=== PATIENT | female | born 1960 | race Caucasian/White ===

== ENCOUNTER 2020-02-15 08:27 | Emergency (ER) | payer SELFPAY ==
[~2020-02-15] VITALS: Ht 167.6 cm; Wt 88.1 kg
--- NOTE | 2020-02-15 09:48 | PHYS DOC ---
Past Medical History Past Medical History: No Pertinent History Smoking Status: Former Smoker Alcohol Use: Occasionally General Adult EDM: Chief Complaint: UPPER EXTREMITY PAIN HPI: HPI: 59 yo F PMH migraine headaches presents to the ed after accidental fall on concrete (states she missed her step) landed on her right upper extremity (dominant right hand). C/o elbow pain. Reports no head injury or LOC. Takes no AC. Does take cbd oil for pain. Tetanus is UTD. No prior injury to RUE. Reports no dizziness or light headedness. Review of Systems: Review of Systems: Constitutional: Denies fever or chills. [] Eyes: Denies change in visual acuity. [] HENT: Denies nasal congestion or sore throat. [] Respiratory: Denies cough or shortness of breath. [] Cardiovascular: Denies chest pain or edema. [] GI: Denies abdominal pain, nausea, vomiting, bloody stools or diarrhea. [] : Denies dysuria. [] Musculoskeletal: Denies back pain or joint pain. [] Integument: Denies rash. [] Neurologic: Denies headache, focal weakness or sensory changes. [] Endocrine: Denies polyuria or polydipsia. [] Lymphatic: Denies swollen glands. [] Psychiatric: Denies depression or anxiety. [] Heart Score: Risk Factors: Risk Factors: DM, Current or recent (<one month) smoker, HTN, HLP, family history of CAD, obesity. Risk Scores: Score 0 - 3: 2.5% MACE over next 6 weeks - Discharge Home Score 4 - 6: 20.3% MACE over next 6 weeks - Admit for Clinical Observation Score 7 - 10: 72.7% MACE over next 6 weeks - Early Invasive Strategies Allergies: Allergies: Allergies Coded Allergies Type Severity Reaction Last Updated Verified No Known Drug Allergies 02/15/20 No Physical Exam: PE: Constitutional: Well developed, well nourished, no acute distress, non-toxic appearance. [] HENT: Normocephalic, atraumatic, bilateral external ears normal, oropharynx moist, no oral exudates, nose normal. [] Eyes: PERRLA, EOMI, conjunctiva normal, no discharge. [] Neck: Normal range of motion, no tenderness, supple, no stridor. [] Cardiovascular:Heart rate regular rhythm, no murmur [] Lungs & Thorax: Bilateral breath sounds clear to auscultation [] Abdomen: Bowel sounds normal, soft, no tenderness, no masses, no pulsatile masses. [] Skin: Warm, dry, no erythema, no rash. [] Back: No tenderness, no CVA tenderness. [] Extremities: No tenderness, no cyanosis, no clubbing, ROM intact, no edema, ttp over radial head, no elbow/wrist hand bone ttp, no tenderness over the rest of the forearm/wrist, abrasions over both knees-no knee ttp, abrasion over right elbow Neurologic: Alert and oriented X 3, normal motor function, normal sensory function, no focal deficits noted. [] Psychologic: Affect normal, judgement normal, mood normal. [] Current Patient Data: Vital Signs: Vital Signs Date Time Temp Pulse Resp B/P (MAP) Pulse Ox O2 Delivery O2 Flow Rate FiO2 02/15/20 09:07 98.0 16 163/72 (102) 96 Room Air 98.0 EKG: EKG: [] Radiology/Procedures: Radiology/Procedures: MAGING REPORT Signed PATIENT: LORENZO VANN ACCOUNT: [id number] : 1960 LOCATION: ER AGE: 59 SEX: F EXAM STATUS: REG ER ORD. PHYSICIAN: MIRANDA MCMULLEN DO REASON: fall - pain in proximal forearm when supinating/pronating hand PROCEDURE: ELBOW RIGHT 2V WRIST 2V LEFT, FOREARM RIGHT, ELBOW RIGHT 2V, HAND RIGHT 2V History: Pain. Reason: fall / Spl. Instructions: / History: Technique: 2 views right elbow, 2 views right forearm, 2 views right wrist and 2 views right hand. Comparison: None. Findings: Right elbow and forearm: Large right elbow joint effusion. Acute nondisplaced radial head fracture. Posterior elbow soft tissue swelling. Otherwise, normal alignment. Right wrist and hand: Mild distal radial ulnar degenerative changes. Normal alignment of the wrist and hand. Mild first carpometacarpal triscaphe DJD. Mild distal interphalangeal degenerative changes. No fracture. Impression: 1. Acute nondisplaced radial head fracture. 2. Large elbow joint effusion. 3. Mild wrist and hand DJD. Electronically signed by: Gustavo Mendez DO (02/15/2020 10:17 AM) [id number] DICTATED and SIGNED BY: GUSTAVO MENDEZ DO DATE: 02/15/20 1017 Impression: Concern for FOOSH injury with nondisplaced closed right radial head fracture, no posterior sail sign on xray. Has no humeral ttp. Patient was splinted with a sugar tong to right upper extremity and given a shoulder sling. Strict return precautions were given for compartment syndrome or neurologic deficits. Outpatient orthopedic follow-up will be given. Encourage PMD follow-up. Narcotic information given. All of her questions were answered and she was stable at time of discharge. Course & Med Decision Making: Course & Med Decision Making Pertinent Labs and Imaging studies reviewed. (See chart for details) [] Dragon Disclaimer: Dragon Disclaimer: This electronic medical record was generated, in whole or in part, using a voice recognition dictation system. Departure Departure Impression: Primary Impression: Radial head fracture, closed Additional Impression: Fall Disposition: 01 HOME, SELF-CARE Referrals: NO PCP (PCP) DIAMOND STONE MD Patient Instructions: Radial Head Fracture Scripts Hydrocodone/Apap 5-325 (NORCO 5-325 TABLET) 1 Each Tablet 1 TAB PO PRN Q6HRS PRN for PAIN, #10 TAB 0 Refills Prov: MIRANDA MCMULLEN DO 02/15/20 Justicifation of Admission Dx: Justifications for Admission: Justification of Admission Dx: N/A MIRANDA MCMULLEN DO Feb 15, 2020 09:48
[2020-02-15] MEDS ORDERED: NEOMY/BACITR/POLYMYXIN OINT PACKET. TP ONE (10:00)
--- NOTE | 2020-02-15 10:21 | RAD ---
WRIST 2V LEFT, FOREARM RIGHT, ELBOW RIGHT 2V, HAND RIGHT 2V History: Pain. Reason: fall / Spl. Instructions: / History: Technique: 2 views right elbow, 2 views right forearm, 2 views right wrist and 2 views right hand. Comparison: None. Findings: Right elbow and forearm: Large right elbow joint effusion. Acute nondisplaced radial head fracture. Posterior elbow soft tissue swelling. Otherwise, normal alignment. Right wrist and hand: Mild distal radial ulnar degenerative changes. Normal alignment of the wrist and hand. Mild first carpometacarpal triscaphe DJD. Mild distal interphalangeal degenerative changes. No fracture. Impression: 1. Acute nondisplaced radial head fracture. 2. Large elbow joint effusion. 3. Mild wrist and hand DJD. Electronically signed by: Gustavo Mendez DO (02/15/2020 10:17 AM) [id number]
[2020-02-15] MEDS ORDERED: HYDROcodone/APAP 7.5/325MG 1 TAB TABLET PO ONE (11:30)
[2020-02-15] MEDS ORDERED: HYDR-3164 PO (12:04)
[2020-02-15 12:05] VITALS: BP 153/62
== END 2020-02-15 12:09 | disposition home or self-care (01) ==
LOC: ER 08:27
DX: S52.124A Nondisplaced fracture of head of right radius, initial encounter for closed fracture (principal); M25.421 Effusion, right elbow; M19.041 Primary osteoarthritis, right hand; M19.031 Primary osteoarthritis, right wrist; Z87.891 Personal history of nicotine dependence; W18.39XA Other fall on same level, initial encounter; Y93.89 Activity, other specified; Y92.89 Other specified places as the place of occurrence of the external cause; Y99.8 Other external cause status
CPT/HCPCS: 29125; 73070; 73090; 73100; 73120; 99284-25; A4565

== ENCOUNTER → 2021-02-02 | Outpatient (CLI) | payer BC ==
[~2021-02-02] MED LIST: HYDR-3164 PO
--- NOTE | 2021-02-02 17:15 | KCIC ---
Bilateral digital screening mammograms: Reason for examination: Routine screening. New baseline. Interpretation was made with the benefit of CAD. The skin and nipples show no abnormalities. No abnormal axillary lymph nodes are seen. The breast par enchyma shows scattered fibroglandular density. (Breast density: Category B.) There is a small nodula r density in the 9:00 position of the right breast approximately 5 cm from the nipple and measuring a pproximately 8 mm in size. There is a small nodular density in the central left breast approximately 7 cm from the nipple measuring 4 mm in size. There is also a patch of parenchymal density at the 7:00 position of the left breast approximately 8 cm from the nipple measuring approximately 1 cm in size which may represent superimposed tissues. No suspicious calcifications are seen. Impression: Small nodular densities bilaterally at the 9:00 position of the right breast and central 11:00 positi on of the left breast. Recommend further evaluation with ultrasound. Small patch of parenchymal densi ty at approximately the 7:00 position of the left breast which may represent superimposed tissues. Re commend additional cone compression views in CC and lateral projections and ultrasound evaluation. BI-RADS Category 0: Incomplete. Needs additional imaging evaluation. "Our facility is accredited by the [employer] Mammography [employer]." This patient's information has been entered into a reminder system for the patient to be notified wit h the results of her examination and a target date for the next mammogram. Electronically signed by: Michell Perez MD (02/02/2021 5:13 PM) [email or web address]
== END ==
LOC: KCIC MAMMO 10:55
PROVIDERS: ATTEND Family Medicine
DX: Z12.31 Encounter for screening mammogram for malignant neoplasm of breast (principal)
CPT/HCPCS: 77067

== ENCOUNTER → 2021-03-01 | Outpatient (CLI) | payer BC ==
--- NOTE | 2021-03-01 09:23 | KCIC ---
Left breast diagnostic digital mammograms: Reason for examination: Parenchymal asymmetry on screening. Comparison is made to previous study dated 02/02/2021. Coned compression views were obtained in CC and oblique projections. With the additional views, a small circumscribed nodule persists in the 10:00 B position. The small p arenchymal densities seen inferior to this on the oblique projection however did not persist and woul d be consistent with superimposition of tissues. IMPRESSION: Continued presence of a small 4 mm circumscribed nodule at the 10:00 B position of the left breast. U ltrasound to follow. BI-RADS Category 0: Incomplete. Needs additional imaging evaluation. Bilateral breast ultrasound: Ultrasound examination was performed bilaterally of the breasts and axilla. In the right breast at the 9:30 position 4 cm from the nipple, there is a 6.6 mm hypoechoic circumscr ibed lesion in parallel orientation with a benign fibrocystic appearance. No other cystic or solid le sions are seen and no abnormal appearing lymph nodes are seen in the right axilla. In the left breast at the 10:00 position 6 cm from the nipple, there is a small 3.1 mm hypoechoic fib rocystic lesion which has benign appearance. No other cystic or solid nodules are seen. No abnormal a ppearing lymph nodes are seen in the left axilla. IMPRESSION: Small benign-appearing fibrocystic type lesions in the right breast at the 9:30 position and in the l eft breast at the 10:00 position. Recommend 6 month follow-up with ultrasound. BI-RADS Category 3: Probably Benign. "Our facility is accredited by the [employer]ammography Program." This patient's information has been entered into a reminder system for the patient to be notified wit h the results of her examination and a target date for the next mammogram. Electronically signed by: Michell Perez MD (03/01/2021 9:21 AM) [email or web address]
== END ==
LOC: KCIC MAMMO 08:03
PROVIDERS: ATTEND Family Medicine
DX: N64.89 Other specified disorders of breast (principal); R92.2 Inconclusive mammogram
CPT/HCPCS: 76641; 77065

== ENCOUNTER 2021-04-04 12:26 | Emergency (ER) | payer BC ==
[~2021-04-04] VITALS: Ht 167.6 cm; Wt 80.9 kg
[2021-04-04 15:15] LABS: BASO % 1 % (0-3); EOS # 0.2 x10^3/uL (0.0-0.7); EOS % 4 % (0-3); HEMATOCRIT 42.5 % (36.0-47.0); HEMOGLOBIN 14.7 g/dL (12.0-15.5); LYMPH % 30 % (24-48); MEAN CORPUSCULAR HEMOGLOBIN 30 pg (25-35); MEAN CORPUSCULAR HGB CONC 35 g/dL (31-37); MEAN CORPUSCULAR VOLUME 87 fL (79-100); MONO # 0.4 x10^3/uL (0.0-1.1); MONO % 6 % (0-9); NEUT % 60 % (31-73); PLATELET COUNT 329 x10^3/uL (140-400); RED BLOOD COUNT 4.89 x10^6/uL (3.50-5.40); RED CELL DISTRIBUTION WIDTH 13.5 % (11.5-14.5); WHITE BLOOD COUNT 6.7 x10^3/uL (4.0-11.0)
[2021-04-04 15:28] LABS: BILIRUBIN,URINE NEGATIVE (NEG); CLARITY,URINE CLEAR; COLOR,URINE YELLOW; NITRITE,URINE NEGATIVE (NEG); PH,URINE 6.5 (<5.0-8.0); PROTEIN,URINE NEGATIVE (NEG-TRACE)
[2021-04-04 15:30] LABS: CALCIUM 9.4 mg/dL (8.5-10.1); CREATININE 0.7 mg/dL (0.6-1.0); GFR 84.8; POTASSIUM 3.8 mmol/L (3.5-5.1)
[2021-04-04 15:31] LABS: BACTERIA,URINE 0 /HPF (0-FEW)
--- NOTE | 2021-04-04 15:32 | RAD ---
Exam: CT of abdomen and pelvis without contrast INDICATION: Right flank pain TECHNIQUE: Sequential axial images through the abdomen and pelvis obtained without IV contrast. Sagit maame and coronal reformatted images were reconstructed from the axial data and reviewed. Exposure: One or more of the following in the visualized dose reduction techniques were utilized for this examination: 1. Automated exposure control 2. Adjustment of the MA and/or KV according to patient size 3. Use of iterative of reconstructive technique Comparisons: None FINDINGS: Heart size is normal. No pericardial effusion. Visualized lung bases are clear. No pleural effusion. Liver, spleen, pancreas and adrenals are unremarkable. Gallbladder is mildly distended. No perinephric inflammation or hydronephrosis. No renal or ureteral calculi are identified. Bladder is partially distended and not well evaluated. Uterus is not enlarged. No abnormal adnexal ma ss. Large and small bowel are unremarkable. Appendix is normal. No free intra-abdominal air or fluid. No obstruction. Abdominal aorta has a normal course and caliber. No enlarged abdominal lymph nodes are identified. No suspicious osseous lesions or acute fractures. IMPRESSION: No renal or ureteral calculi. No evidence for obstructive uropathy. Electronically signed by: Vito Mcallister MD (04/04/2021 3:29 PM) [facility]
[2021-04-04 15:41] LABS: ALBUMIN 4.1 g/dL (3.4-5.0); ALBUMIN/GLOBULIN RATIO 1.3 (1.0-1.7); TOTAL BILIRUBIN 0.5 mg/dL (0.2-1.0); TOTAL PROTEIN 7.3 g/dL (6.4-8.2)
[2021-04-04 15:55] VITALS: BP 139/57
--- NOTE | 2021-04-04 17:05 | PHYS DOC ---
Past Medical History Past Medical History: No Pertinent History Additional Past Medical Histor: STOMACH ULCERS, Past Surgical History: Tonsillectomy Smoking Status: Former Smoker Alcohol Use: Occasionally General Adult EDM: Chief Complaint: ABDOMINAL PAIN HPI: HPI: Patient is a 60 year old female who present to ER for evaluation of right lower abdominal pain off and on for several years. Patient said today she started having the pain again, the pain was sharp and stabbing in nature, so she went to the urgent care center. By the time she got there the pain went away but she decided to come here for evaluation. Patient says she just had a normal colonoscopy a month ago because he had history of diverticulitis. Patient denies any fever, no nausea vomiting, no diarrhea, no trouble with urination. Review of Systems: Review of Systems: Constitutional: Denies fever or chills. [] Eyes: Denies change in visual acuity. [] HENT: Denies nasal congestion or sore throat. [] Respiratory: Denies cough or shortness of breath. [] Cardiovascular: Denies chest pain or edema. [] GI: Positive for right lower abdominal pain, no nausea vomiting, no diarrhea. : Denies dysuria. [] Musculoskeletal: Denies back pain or joint pain. [] Integument: Denies rash. [] Neurologic: Denies headache, focal weakness or sensory changes. [] Endocrine: Denies polyuria or polydipsia. [] Lymphatic: Denies swollen glands. [] Psychiatric: Denies depression or anxiety. [] Heart Score: C/O Chest Pain: N/A Risk Factors: Risk Factors: DM, Current or recent (<one month) smoker, HTN, HLP, family history of CAD, obesity. Risk Scores: Score 0 - 3: 2.5% MACE over next 6 weeks - Discharge Home Score 4 - 6: 20.3% MACE over next 6 weeks - Admit for Clinical Observation Score 7 - 10: 72.7% MACE over next 6 weeks - Early Invasive Strategies Allergies: Allergies: Allergies Coded Allergies Type Severity Reaction Last Updated Verified No Known Drug Allergies 02/15/20 No Physical Exam: PE: Constitutional: Well developed, well nourished, no acute distress, non-toxic appearance. [] HENT: Normocephalic, atraumatic, bilateral external ears normal, oropharynx moist, no oral exudates, nose normal. [] Eyes: PERRLA, EOMI, conjunctiva normal, no discharge. [] Neck: Normal range of motion, no tenderness, supple, no stridor. [] Cardiovascular:Heart rate regular rhythm, no murmur [] Lungs & Thorax: Bilateral breath sounds clear to auscultation [] Abdomen: Bowel sounds normal, soft, there is tender to palpation in the right lower abdominal area, no guarding, no rebound , no masses, no pulsatile masses. [] Skin: Warm, dry, no erythema, no rash. [] Back: No tenderness, no CVA tenderness. [] Extremities: No tenderness, no cyanosis, no clubbing, ROM intact, no edema. [] Neurologic: Alert and oriented X 3, normal motor function, normal sensory function, no focal deficits noted. [] Psychologic: Affect normal, judgement normal, mood normal. [] Current Patient Data: Labs: Laboratory Tests Test 04/04/21 14:40 04/04/21 15:05 Urine Collection Type Unknown Urine Color Yellow Urine Clarity Clear Urine pH 6.5 (<5.0-8.0) Urine Specific [place] 1.020 (1.000-1.030) Urine Protein Negative mg/dL (NEG-TRACE) Urine Glucose (UA) Negative mg/dL (NEG) Urine Ketones (Stick) 15 mg/dL (NEG) Urine Blood Trace (NEG) Urine Nitrite Negative (NEG) Urine Bilirubin Negative (NEG) Urine Urobilinogen Dipstick 1.0 mg/dL (0.2 mg/dL) Urine Leukocyte Esterase Negative (NEG) Urine RBC 3-5 /HPF (0-2) Urine WBC 1-4 /HPF (0-4) Urine Squamous Epithelial Cells Few /LPF Urine Bacteria 0 /HPF (0-FEW) White Blood Count 6.7 x10^3/uL (4.0-11.0) Red Blood Count 4.89 x10^6/uL (3.50-5.40) Hemoglobin 14.7 g/dL (12.0-15.5) Hematocrit 42.5 % (36.0-47.0) Mean Corpuscular Volume 87 fL (79-100) Mean Corpuscular Hemoglobin 30 pg (25-35) Mean Corpuscular Hemoglobin Concent 35 g/dL (31-37) Red Cell Distribution Width 13.5 % (11.5-14.5) Platelet Count 329 x10^3/uL (140-400) Neutrophils (%) (Auto) 60 % (31-73) Lymphocytes (%) (Auto) 30 % (24-48) Monocytes (%) (Auto) 6 % (0-9) Eosinophils (%) (Auto) 4 % (0-3) H Basophils (%) (Auto) 1 % (0-3) Neutrophils # (Auto) 4.0 x10^3/uL (1.8-7.7) Lymphocytes # (Auto) 2.0 x10^3/uL (1.0-4.8) Monocytes # (Auto) 0.4 x10^3/uL (0.0-1.1) Eosinophils # (Auto) 0.2 x10^3/uL (0.0-0.7) Basophils # (Auto) 0.0 x10^3/uL (0.0-0.2) Sodium Level 140 mmol/L (136-145) Potassium Level 3.8 mmol/L (3.5-5.1) Chloride Level 103 mmol/L (98-107) Carbon Dioxide Level 29 mmol/L (21-32) Anion Gap 8 (6-14) Blood Urea Nitrogen 20 mg/dL (7-20) Creatinine 0.7 mg/dL (0.6-1.0) Estimated GFR (Cockcroft-Gault) 84.8 BUN/Creatinine Ratio 29 (6-20) H Glucose Level 86 mg/dL (70-99) Calcium Level 9.4 mg/dL (8.5-10.1) Total Bilirubin 0.5 mg/dL (0.2-1.0) Aspartate Amino Transferase (AST) 20 U/L (15-37) Alanine Aminotransferase (ALT) 34 U/L (14-59) Alkaline Phosphatase 86 U/L (46-116) Total Protein 7.3 g/dL (6.4-8.2) Albumin 4.1 g/dL (3.4-5.0) Albumin/Globulin Ratio 1.3 (1.0-1.7) Lipase 133 U/L (73-393) Laboratory Tests 04/04/21 15:05 Laboratory Tests 04/04/21 15:05 Vital Signs: Vital Signs Date Time Temp Pulse Resp B/P (MAP) Pulse Ox O2 Delivery O2 Flow Rate FiO2 04/04/21 15:55 64 139/57 (84) 99 Room Air 04/04/21 14:42 97.9 18 97.9 EKG: EKG: [] Radiology/Procedures: Radiology/Procedures: [][facility] [address] [place] [address] IMAGING REPORT Signed PATIENT: LORENZO VANN ACCOUNT: [id number] : 1960 LOCATION: ER AGE: 60 SEX: F EXAM STATUS: REG ER ORD. PHYSICIAN: ASHWIN DAVISON DO REASON: right flank pain PROCEDURE: CT ABDOMEN PELVIS WO CONTRAST Exam: CT of abdomen and pelvis without contrast INDICATION: Right flank pain TECHNIQUE: Sequential axial images through the abdomen and pelvis obtained without IV contrast. Sagittal and coronal reformatted images were reconstructed from the axial data and reviewed. Exposure: One or more of the following in the visualized dose reduction techn iques were utilized for this examination: 1. Automated exposure control 2. Adjustment of the MA and/or KV according to patient size 3. Use of iterative of reconstructive technique Comparisons: None FINDINGS: Heart size is normal. No pericardial effusion. Visualized lung bases are clear. No pleural effusion. Liver, spleen, pancreas and adrenals are unremarkable. Gallbladder is mildly distended. No perinephric inflammation or hydronephrosis. No renal or ureteral calculi are identified. Bladder is partially distended and not well evaluated. Uterus is not enlarged. No abnormal adnexal mass. Large and small bowel are unremarkable. Appendix is normal. No free intra- abdominal air or fluid. No obstruction. Abdominal aorta has a normal course and caliber. No enlarged abdominal lymph nodes are identified. No suspicious osseous lesions or acute fractures. IMPRESSION: No renal or ureteral calculi. No evidence for obstructive uropathy. Electronically signed by: Vito Mcallister MD (04/04/2021 3:29 PM) [facility] [address] [place] [address] IMAGING REPORT Signed PATIENT: LORENZO VANN ACCOUNT: [id number] : 1960 LOCATION: ER AGE: 60 SEX: F EXAM STATUS: REG ER ORD. PHYSICIAN: ASHWIN DAVISON DO REASON: right side pelvic pain PROCEDURE: PELVIS ULTRASOUND EXAM: Pelvic sonogram. HISTORY: Pain. TECHNIQUE: Sonographic imaging of the pelvis was performed. COMPARISON: CT obtained on the same date. FINDINGS: The uterus measures 8.6 x 5.5 x 3.6 cm. The endometrial stripe measures 4.4 mm in thickness. The ovaries are normal in size and demonstrate normal blood flow. There is no pelvic free fluid. IMPRESSION: Unremarkable pelvic sonogram. Electronically signed by: Taylor Rossi MD (04/04/2021 5:08 PM) [email or web address] DICTATED and SIGNED BY: TAYLOR ROSSI MD DATE: 04/04/21 [id number] 0 Course & Med Decision Making: Course & Med Decision Making Pertinent Labs and Imaging studies reviewed. (See chart for details) Patient is a 60-year-old female who presented for evaluation of abdominal pain at the right lower abdominal area, CT scan did not show any acute problem, ultrasound did not show any acute problem. Her lab work did not show any acute problem. Patient was discharged home, she will need to follow-up with her family physician for reevaluation. Theodore Disclaimer: Theodore Disclaimer: This electronic medical record was generated, in whole or in part, using a voice recognition dictation system. Departure Departure Impression: Primary Impression: Abdominal pain Disposition: HOME / SELF CARE / HOMELESS Condition: STABLE Referrals: CHRISTIAN LARA MD (PCP) pLEASE FOLLOW UP WITH YOUR DOCTOR FOR REFERALL TO GI SPECIALIST. Patient Instructions: Abdominal Pain Additional Instructions: Thank you for visiting our Emergency Department. We appreciate you trusting us with your care. If any additional problems come up don't hesitate to return to visit us. Please follow up with your primary care provider so they can plan additional care if needed and know about the problem that you had. If symptoms worsen come back to the Emergency Department. Any concerning symptoms that start such as chest pain, shortness of air, weakness or numbness on one side of the body, running high fevers or any other concerning symptoms return to the ER. ASHWIN DAVISON DO Apr 04, 2021 17:05
--- NOTE | 2021-04-04 17:10 | RAD ---
EXAM: Pelvic sonogram. HISTORY: Pain. TECHNIQUE: Sonographic imaging of the pelvis was performed. COMPARISON: CT obtained on the same date. FINDINGS: The uterus measures 8.6 x 5.5 x 3.6 cm. The endometrial stripe measures 4.4 mm in thickness . The ovaries are normal in size and demonstrate normal blood flow. There is no pelvic free fluid. IMPRESSION: Unremarkable pelvic sonogram. Electronically signed by: Taylor Greenfield MD (04/04/2021 5:08 PM) [email or web address]
== END 2021-04-04 17:45 | disposition home or self-care (01) ==
LOC: ER 12:26
DX: R10.31 Right lower quadrant pain (principal); Z87.891 Personal history of nicotine dependence
CPT/HCPCS: 36415; 74176; 76856; 80053; 81001; 83690; 85025; 99285-25

== ENCOUNTER → 2021-09-19 | Outpatient (CLI) | payer BC, OTHER ==
--- NOTE | 2021-09-19 14:19 | KCIC ---
Bilateral breast ultrasound: Reason for examination: Follow-up nodules. Comparison is made to previous study dated 03/01/2021. Ultrasound examination of the breasts and axilla was performed bilaterally. In the right breast at the 9:30 position 4 cm from the nipple, there continues be a 6.2 mm hypoechoic fibrocystic nodule in parallel orientation which shows no significant change. No other cystic or marti id nodules are seen. There is some ductal ectasia in the retroareolar position. No abnormal appearing lymph nodes are seen in the right axilla. In the left breast at the 10:00 position 6 cm from the nipple, there is a small 4.1 mm nodule again s een which is well-circumscribed and probably represents a complicated cyst or small fibroadenoma. No other cystic or solid nodules are seen. There is some ductal ectasia in the retroareolar position. No abnormal appearing lymph nodes are seen in the left axilla. IMPRESSION: Nodules at the 9:30 position of the right breast and 10:00 position of the left breast appear to be s table. Recommend continued 6 month follow-up with ultrasound for one year stability. This can be perf ormed at the time of bilateral mammograms. BI-RADS Category 3: Probably Benign. "Our facility is accredited by the [employer] Mammography [employer]." This patient's information has been entered into a reminder system for the patient to be notified wit h the results of her examination and a target date for the next mammogram. Electronically signed by: Michell Perez MD (09/19/2021 2:17 PM) [email or web address]
== END ==
LOC: KCIC US 13:38
PROVIDERS: ATTEND Family Medicine
DX: Z09 Encounter for follow-up examination after completed treatment for conditions other than malignant neoplasm (principal); N63.11 Unspecified lump in the right breast, upper outer quadrant
CPT/HCPCS: 76641